=== PATIENT | male | born 1960 | race Caucasian/White ===

== ENCOUNTER 2022-10-08 16:04 | Emergency (ER) | payer OTHER, SELFPAY ==
[2022-10-08 16:17] VITALS: BP 144/127; PULSE 60; RESP 24; TEMP 36.5; O2SAT 99
--- NOTE | 2022-10-08 16:30 | DI.RAD_ITS ---
Exam(s) XR ELBOW RT LIMITED EXAM: XR ELBOW RT LIMITED CLINICAL HISTORY: trauma. TECHNIQUE: 2D digital imaging was performed. COMPARISON: No exams were available for comparison FINDINGS: Two views: There is lateral dislocation of the elbow joint. There is no obvious fracture of the radial head and neck nor of the olecranon. There is an osteophytic fragment which is possibly off the lateral epico ndyle. Capitellum and trochlea appear intact. IMPRESSION: Lateral dislocation of the elbow. Probable fracture of the lateral epicondyle. DATA REPOSITORY: RADIATION DOSE DELIVERED:
[2022-10-08] MEDS: ACETAMINOPHEN 1,000 MG/100 ML BTL 400 MG IVPB (16:51)
[2022-10-08] MEDS: HYDROmorphone 2 MG/ML SYR 0.5 MG IVP ×2 (16:52→18:46)
[2022-10-08] MEDS: fentaNYL 100 MCG/2 ML VIAL 75 MCG IVP (17:31)
--- NOTE | 2022-10-08 18:06 | DI.VRAD_ITS ---
PROCEDURE INFORMATION: Exam: XR Right Elbow Exam date and time: 10/08/2022 5:47 PM Age: 62 years old Clinical indication: Other: Trauma TECHNIQUE: Imaging protocol: Radiologic exam of the right elbow. Views: 1 or 2 views. COMPARISON: No relevant prior studies available. FINDINGS: Bones/joints: Lateral elbow dislocation. Tiny ossicle may be off the lateral epicondyle. No definite fracture of the olecranon or radial head. Soft tissues: Moderate soft tissue edema. IMPRESSION: Lateral dislocation of the elbow with probable fracture of the lateral epicondyle. Dictated and Authenticated by: Favian Robles MD. Ordering:DIANE Durham MD
[2022-10-08] MEDS: HYDROmorphone 2 MG/ML SYR 1 MG IVP (19:38)
--- NOTE | 2022-10-08 19:41 | W.EDPROG ---
Date of service: 10/08/22 Time of Service: 19:41 Medical Decision Making I met with this patient before he was transferred to [facility] [place]. In brief this is a [id number] previously healthy 62-year-old male who had fallen from a ladder and caught his right arm in the ladder on the way down. He did not hit his head he did not lose consciousness. His primary survey was intact. He has a reassuring shock index. His right hand is warm and well-perfused. His plain films showed a lateral dislocation of his right elbow with a probable fracture of the lateral epicondyle. Unfortunately orthopedics was not available locally so orthopedics was consulted at [facility] [place] given fracture dislocation. Recommendation from orthopedics at [facility] [place] was that we could consider reduction prior to splinting. A seismic observer was on the way to transport the patient in less than 20 minutes. I advised that I could attempt relocation but that this would risk possible worsening his fracture and delaying in transfer. His pain was being managed with IV medications. Patient agreed that deferring reduction seemed best to him given availability of specialty care at [facility] [place] and adequately managed pain. Given no chest tenderness and no hypoxia no indication for chest imaging as my suspicion was exceedingly low for pneumothorax. No head strike nor LOC so will defer CT head. No indication for CT cervical spine based no reported neck pain. Discharge Plan Disposition Patient Disposition: Transfer-Acute Inpatient Care Specific Acute Inpt Facility: [facility] Discharge Details Clinical Impression: Closed fracture dislocation of elbow Primary Care Provider: [facility] ED Provider: Marva Duran Meds and New Rx's Prescriptions: No Action amoxicillin 500 MG capsule 500 mg PO TID 10 Days 0RF Discharge Data Discharge Date/Time-TO BE ENTERED AT DEPARTURE: 10/08/22 20:23
--- NOTE | 2022-10-08 20:11 | ED.GENADUL_ITS ---
Discharge Plan Disposition Patient Disposition: Transfer-Acute Inpatient Care Specific Acute Inpt Facility: [facility] Discharge Details Clinical Impression: Closed fracture dislocation of elbow Primary Care Provider: [place] ED Provider: Marva Duran Meds and New Rx's Prescriptions: No Action amoxicillin 500 MG capsule 500 mg PO TID 10 Days 0RF Discharge Data Discharge Date/Time-TO BE ENTERED AT DEPARTURE: 10/08/22 20:23 Medical Decision Making This is a 62-year-old with isolated right arm injury neurovascularly intact. X- ray demonstrates dislocated fractured right elbow. His case is discussed with orthopedics at [facility] who recommends ED to ED transfer I spoke with Dr. Joon Mills from the emergency department who accepts patient in transfer he is being transported by ground EMS in stable condition. He has received 1000 mg of IV acetaminophen 0.5 mg IV Dilaudid 75 mics of IV fentanyl. Repeat Dilaudid 1 mg IV push with pain improvement. Discussed reduction with him patient opted to wait to arrive at [facility] so not to avoid delay in his transfer Medical Records Medical records reviewed: Yes I reviewed the patient's medical records. HPI General Mode of arrival: ambulatory . Date/Time Provider Initiated Documentation: 10/08/22 16:24 . Limitations to Documentation: no limitations . Information obtained by: patient . HPI Narrative: This is a 62-year-old male patient with no significant past medical history on no medication mechanical fall on a ladder approximately 5 feet injury to his right arm while it was caught in a rung during the fall. There was no other injury. He did not strike his head. He has been unable to move his right elbow secondary to the pain. He presents for evaluation Related Data Home Medications Medication Instructions Recorded Confirmed amoxicillin 500 mg capsule 500 mg PO TID 10 days 03/09/16 Previous Rx's Medication Instructions Recorded amoxicillin 500 mg capsule 500 mg PO TID 10 days 03/09/16 Allergies Allergy/AdvReac Type Severity Reaction Status Date / Time No Known Allergies Allergy Unverified 10/08/22 16:28 General Stated Complaint: Orthopedic RAVINDER: 3 Review of Systems All systems reviewed & are unremarkable except as noted in HPI and below PFSH All Active Problems (Updated 10/08/22 @ 20:21 by Marva Duran, [employer]) Closed fracture dislocation of elbow (Acute) Social History Smoking/Tobacco Use Status: Never Smoking risk assessment performed?: Yes Alcohol Intake: current Substance use type: does not use Do you feel safe in your relationship?: No Exam Const General: cooperative and in distress moderate Nutritional Appearance: thin Orientation: alert, awake and oriented x3 HENMT Head: normal to inspection, normocephalic and atraumatic Face and sinus: normal facial exam Neck Neck: normal visual inspection, full ROM and nontender Chest Chest: normal inspection of the chest Resp Effort & Inspection: normal respiratory effort Auscultation: clear to auscultation bilaterally Cardio Rate: regular rate Rhythm: regular rhythm GI Inspection: normal to inspection Palpation: soft and nontender Skin General skin exam: no rashes or lesions noted Neuro General: patient alert, patient awake and patient oriented x3 Extrem Right upper extremity: elbow/forearm Details: tenderness, swelling and deformity (Suspected dislocation arm is held in a straight position) Location: other (Patient reported good pulse sensation and color distally); abnormal to inspection and ROM limited Course Vital Signs Vital signs: Vital Signs Temperature 36.5 C 10/08/22 16:17 Pulse 60 10/08/22 16:17 Respiratory Rate 24 10/08/22 16:17 Blood Pressure 144/127 H 10/08/22 16:17 Pulse Oximetry 99 10/08/22 16:17 Temperature 36.5 C 10/08/22 16:17 Temperature Source Temporal Artery Scan 10/08/22 16:17 Pulse 60 10/08/22 16:17 Respiratory Rate 24 10/08/22 16:17 Blood Pressure 144/127 H 10/08/22 16:17 Blood Pressure Position Sitting 10/08/22 16:17 Pulse Oximetry 99 10/08/22 16:17 Oxygen Delivery Method Room Air 10/08/22 16:17 Oxygen Flow Rate 0 10/08/22 16:17 Pain Level 8 10/08/22 18:46
--- NOTE | 2022-10-08 20:17 | NUR.NOTE ---
Nursing Note: Report called to [facility], spoke with Mark Dinero RN. All questions answered. EMS at bedside for transport to [facility]. Report given to JUSTIN Nguyễn-P. Pt out of ER at this time.
[2022-10-08 20:20] VITALS: BP 134/83; PULSE 72; O2SAT 94
== END 2022-10-08 20:23 | disposition short-term general hospital (02) ==
PROVIDERS: Emergency Provider Nurse Practitioner Acute Care
DX: S42.401A Unspecified fracture of lower end of right humerus, initial encounter for closed fracture (principal); W11.XXXA Fall on and from ladder, initial encounter
CPT/HCPCS: 96365; 96375; 96376; 99285; 73070; J0131; J1170; J3010

== ENCOUNTER 2024-11-14 01:59 | Outpatient (CLI) | payer OTHER, SELFPAY ==
--- NOTE | 2024-11-14 | DI.CT_ITS ---
Exam(s) CT ABDOMEN PELVIS WO/W EXAM: CT ABDOMEN PELVIS WO/W CLINICAL HISTORY: Gross hematuria, R31.0;flank pain;tobacco use; [id number]. TECHNIQUE: Imaging Protocol: Axial computed tomography images with coronal and sagittal reformatted images were created and reviewed. Images were performed from the lung bases through the ischial tuberosities before IV contrast and following IV contrast using a 70 second delay, followed by 7 minutes delayed images. CONTRAST MATERIAL: Intravenous: Omnipaque 350 Contrast volume:75 cc Oral: no COMPARISON: No exams were available for comparison FINDINGS: Lung Bases: Normal where visualized. Liver: Normal density. No measurable mass. Gallbladder and biliary tract: No biliary dilation. Pancreas: Normal density, no abnormal calcifications or inflammatory process. Spleen: Normal. Kidneys: Normal size, contour and axis. No radiodense stones or obstructive uropathy. No suspicious masses seen. Adrenal glands: No masses seen. Lymph nodes: 13 x 5 millimeter lymph node to the left of the bladder, adjacent to the anterior acetabulum. This is at the level of the bladder mass. Abdominal Aorta: Abdominal portion non-dilated. Atherosclerotic changes causing luminal narrowing distally. There is also some narrowing of the iliac arteries. Soft tissues: Unremarkable. Bladder: No gross wall thickening. Peripherally calcified mass along the left wall of the bladder measuring 19 x 17 by 23 millimeters.No evidence of calculi. Bowel: Stomach unremarkable. No obstruction or bowel wall thickening. Sigmoid diverticulosis. Peritoneal cavity: No ascites, collection or mesenteric inflammatory response. Bones: Unremarkable for age.. Reproductive organs: Prostate is mildly enlarged. IMPRESSION: 2.3 centimeter mass at the left side of the bladder. Cystoscopy is recommended for further evaluation. No suspicious renal mass. No evidence of urinary tract calculi. No evidence of hydronephrosis. Unexpected findings RADIATION DOSE DELIVERED: 652.14mGy.cm Total DLP DATA REPOSITORY: All CT scans at this facility are submitted to the National Radiology Data Registry (NRDR) Dose Index Registry (DIR) with the [employer] (A[employer]). RADIATION OPTIMIZATION: All CT scans at this facility use at least one of these dose optimization techniques: automated exposure control; mA and/or kV adjustment per patient size (includes targeted exams where dose is matched to clinical indication); or iterative reconstruction.
[2024-11-14 07:36] LABS: BUN 23 mg/dL (7-18); Estimated GFR 99.44 (mL/min/1.73m2)
[2024-11-14] MEDS: Normal Saline - Diluent 50 ML VIAL IJ ×2 (08:56→08:57)
[2024-11-14] MEDS: Omnipaque 350 MG/ML 500 ML BTL-Imaging package IJ (08:58)
== END 2024-11-14 02:19 ==
PROVIDERS: PCP Internal Medicine; Visit Provider Internal Medicine
DX: R31.0 Gross hematuria (principal); R93.41 Abnormal radiologic findings on diagnostic imaging of renal pelvis, ureter, or bladder
CPT/HCPCS: 84520; 74178; 82565

== ENCOUNTER 2025-01-29 14:14 | Emergency (ER) | payer OTHER, SELFPAY ==
[2025-01-29 14:17] VITALS: BP 169/78; PULSE 94; RESP 18; TEMP 36.5; O2SAT 98
[2025-01-29 14:19] VITALS: BP 169/78; PULSE 94; RESP 18; TEMP 36.5; O2SAT 98
--- NOTE | 2025-01-29 14:31 | W.ED.GENAD ---
Discharge Plan Disposition Patient Disposition: Home Condition: Stable Discharge Details Clinical Impression: Postoperative urinary retention Primary Care Provider: Marilin Hewitt ED Provider: Yen Pyle Home Meds and New Rx's Prescriptions: New tamsulosin 0.4 mg capsule 0.4 mg PO DAILY Qty: 30 0RF Discharge Instructions Instructions: How to Care for Your Bowens Catheter Additional Instructions: You were seen in the emergency department today for evaluation of urinary retention after your Bowens catheter was removed this morning. In our department you had a full physical examination performed, and we discussed your case with your urologist from the [place]. We replaced your urinary catheter, and your bladder was drained. Likely, you experience some occlusion due to swelling after the procedure, as well as potentially some clots. We have started you on a medication called tamsulosin or Flomax, which can improve the flow of urine and should make it easier for your urology team to remove the Bowens catheter successfully. You will have a visit scheduled by their team on Tuesday or Tuesday of next week for a formal void trial. The catheter will remain in place until it is removed by their team. Please take the Flomax daily until you are told to stop by your urologist. Flomax can make you feel dizzy if you stand up too quickly so please use caution when transitioning from laying down or sitting to standing, and maintain good hydration. Please follow-up with your primary care provider in the next few days to discuss this visit and any symptoms that change, worsen, or persist. Thank you for allowing us to be part of your care. HPI General Mode of arrival: ambulatory. Date/Time Provider Initiated Documentation: 01/29/25 14:20. Limitations to Documentation: no limitations. Information obtained by: patient and old records reviewed. HPI Narrative: This is a 64-year-old male patient with a history of bladder masses that were resected at the [facility] yesterday, presenting for evaluation of urinary retention. He was sent home with a Bowens catheter, states that he was instructed to remove it this morning, and his did so around 9 AM. Since that time he has been comfortable and resting but has not been able to pass any urine. He has been drinking a lot of water, and states that he is not taking any medication such as Flomax. He states that he is starting to have some discomfort in his lower abdomen but otherwise feels well without fevers or chills, flank pain, penile discharge. Related Data Home Medications ?Medication ?Instructions ?Recorded ?Confirmed tamsulosin 0.4 mg capsule 0.4 mg PO DAILY #30 caps 01/29/25 Previous Rx's ?Medication ?Instructions ?Recorded tamsulosin 0.4 mg capsule 0.4 mg PO DAILY #30 caps 01/29/25 Allergies Allergy/AdvReac Type Severity Reaction Status Date / Time No Known Allergies Allergy Unverified 01/29/25 14:45 General Stated Complaint: Urinary RAVINDER: 4 Exam Narrative Exam Narrative: Gen: Awake and alert, in no apparent distress HEENT: Non-icteric sclera Neck: Supple Lungs: No apparent respiratory distress, normal respiratory effort. CV: Appears well perfused Abdomen: Distention in the suprapubic region that is tender to palpation, no rigidity, rebound, or guarding MSK: Moves 4 extremities without apparent limitation in ROM Skin: Visualized skin without rashes, cyanosis. Neuro: Normal Gait, no obvious focal deficits or facial asymmetry. Speaks in full, clear sentences. Psych: Appropriate for situation. Course Vital Signs Vital signs: Vital Signs Temperature 36.5 C 01/29/25 14:17 Pulse 94 H 01/29/25 14:17 Respiratory Rate 18 01/29/25 14:17 Blood Pressure 169/78 H 01/29/25 14:17 Pulse Oximetry 98 01/29/25 14:17 Temperature 36.5 C 01/29/25 14:19 Pulse 94 H 01/29/25 14:19 Respiratory Rate 18 01/29/25 14:19 Blood Pressure 169/78 H 01/29/25 14:19 Pulse Oximetry 98 01/29/25 14:19 Pain Level 3 01/29/25 14:19 Medical Decision Making This is a 64-year-old male patient presenting for evaluation of urinary retention. My differential includes but is not limited to postoperative retention, hematuria/clot and other mechanical obstruction. I have a low concern for bladder rupture due to the lack of significant abdominal tenderness and the focal distention in the area of the bladder. The patient or peritonitic abdominal signs, and the localized distention over the area of the bladder. The patient has no fevers, chills, or other systemic symptoms to increase my concern for UTI/pyelonephritis. I will reach out to the [facility] urology team as I cannot access any records regarding his surgery to ensure that it is safe for me to place a catheter to resolve his urinary retention. We will obtain a bladder scan. - Bladder scan reading 200, though the patient's clinical examination is suggestive of more than that. I was able to talk to Dr. Villalba with the [facility] urology team, who recommends that we replace the Bowens catheter, using a slightly larger bore due to the presence of hematuria during his procedure. He recommends Flomax, which I will provide the patient his first dose and a prescription here. They will have the catheter stay in place until he can have a formal void trial in the [facility] urology clinic on Tuesday. The patient's Bowens catheter was placed and drained of approximately 300 cc of yellow urine. Urinalysis with pyuria and hematuria, most likely postoperative given the lack of urinary infection symptoms, will be sent for culture regardless but I do not see any indication to empirically antibiosis patient. At this time, the patient has had a full medical evaluation and is safe for discharge to home. They are hemodynamically stable, ambulatory, and tolerating PO. They are understanding of the follow-up plan and return precautions. They left our facility without incident. Yen Pyle MD [facility] All Active Problems (Updated 01/29/25 @ 16:01 by Yen Pyle MD) Postoperative urinary retention (Acute) Social History Smoking/Tobacco Use Status: Current every day Tobacco Type: cigarettes Smoking risk assessment performed?: Yes Alcohol Intake: former Drug use: Occasionally Substance use type: marijuana Housing: house Do you feel safe at home: Yes Do you feel safe in your relationship?: Yes
[2025-01-29] MEDS: Tamsulosin 0.4 MG CAPCR PO (15:54)
[2025-01-29] MEDS: Lidocaine 2% Jelly 11 ML SYR UR (15:54)
[2025-01-29 16:09] LABS: Glucose 100 mg/dL (Negative)
[2025-01-29 16:21] LABS: C & S Indicated? Yes; RBC >50 HPF (0-2); WBC >50 HPF (0-5)
[2025-01-29 16:30] VITALS: BP 140/71; PULSE 86; RESP 16; O2SAT 99
== END 2025-01-29 16:34 | disposition home or self-care (01) ==
PROVIDERS: Emergency Provider Emergency Medicine; PCP Internal Medicine
DX: N99.89 Other postprocedural complications and disorders of genitourinary system; R33.8 Other retention of urine
CPT/HCPCS: 99283 ×2; 51702; 51798; 81003; 81015; 87086

== ENCOUNTER 2025-01-30 05:19 | Emergency (ER) | payer OTHER, SELFPAY ==
[2025-01-30 05:23] VITALS: BP 163/96; PULSE 104; RESP 16; TEMP 35.5; O2SAT 98
[2025-01-30 05:37] VITALS: BP 163/96; PULSE 104; RESP 16; TEMP 35.5; O2SAT 98
--- NOTE | 2025-01-30 06:41 | W.ED.GENAD ---
Discharge Plan Disposition Patient Disposition: Home Condition: Good Discharge Details Clinical Impression: Bladder spasms Primary Care Provider: Marilin Hewitt ED Provider: Juan Carlos Love [place] Meds and New Rx's Prescriptions: No Action tamsulosin 0.4 mg capsule 0.4 mg PO DAILY Qty: 30 0RF Patient Comments: has not picked up from pharmacy yet Discharge Instructions Additional Instructions: You were seen for concern regarding blocked Bowens. Bladder scan showed only a tablespoonful of urine in the bladder. We were able to irrigate and drain the catheter without difficulty. Suspect the discomfort you are feeling was related to bladder spasm due to having a Bowens in place. Continue to push fluids and stay hydrated. [facility] Return to ED for any further concerns, fever. Discharge Data Discharge Date/Time-TO BE ENTERED AT DEPARTURE: 01/30/25 06:55 HPI General Mode of arrival: ambulatory. Date/Time Provider Initiated Documentation: 01/30/25 05:20. Limitations to Documentation: no limitations. Information obtained by: patient and RN notes reviewed. HPI Narrative: Patient presenting to ED with concern that his Bowens catheter is no longer draining. Patient had Bowens catheter placed here yesterday afternoon due to retention status post removal of catheter in the morning per postoperative instructions. He has been doing fine and emptied the bag at 10:30 PM and 4:30 AM. Now has very little urine in the bag and has a sense of urgency and discomfort in the lower abdomen. Has not had gross hematuria. Denies fever or flank pain. Related Data Home Medications ?Medication ?Instructions ?Recorded ?Confirmed tamsulosin 0.4 mg capsule 0.4 mg PO DAILY #30 caps 01/29/25 01/30/25 Held on 01/30/25. Instructions: Pt Stopped/Never Started Previous Rx's ?Medication ?Instructions ?Recorded tamsulosin 0.4 mg capsule 0.4 mg PO DAILY #30 caps 01/29/25 Held on 01/30/25. Instructions: Pt Stopped/Never Started Allergies Allergy/AdvReac Type Severity Reaction Status Date / Time No Known Allergies Allergy Unverified 01/30/25 05:36 General Stated Complaint: Urinary RAVINDER: 3 Exam Narrative Exam Narrative: Const: WDWN male in NAD. VS per triage. HEENT: NC/AT. Normal facial exam. Neck: Supple. Trachea midline. Lungs: Normal respiratory effort. Neuro: A+O x 3. Normal speech, mentation. Cranial nerves II - XII grossly intact. No gross motor or sensory deficit. Course Vital Signs Vital signs: Vital Signs Temperature 96 F L 01/30/25 05:23 Pulse 104 H 01/30/25 05:23 Respiratory Rate 16 01/30/25 05:23 Blood Pressure 163/96 H 01/30/25 05:23 Pulse Oximetry 98 01/30/25 05:23 Temperature 96 F L 01/30/25 05:37 Temperature Source Tympanic 01/30/25 05:37 Pulse 104 H 01/30/25 05:37 Respiratory Rate 16 01/30/25 05:37 Blood Pressure 163/96 H 01/30/25 05:37 Blood Pressure Position Supine 01/30/25 05:37 Pulse Oximetry 98 01/30/25 05:37 Oxygen Delivery Method Room Air 01/30/25 05:37 Oxygen Flow Rate 0 01/30/25 05:37 Pain Level 7 01/30/25 05:37 Medical Decision Making Bowens catheter does seem to be working. Bladder scan shows 15 mL of urine. We were able to flush and remove fluid through the catheter without problem. Suspect discomfort and urgency related to the Bowens catheter itself and some bladder spasm. Patient reassured. Encouraged to continue hydration. Follow-up with urology at [place] next week as planned. Return precautions provided. PFSH All Active Problems (Updated 01/30/25 @ 06:43 by Juan Carlos Love MD) Bladder spasms (Acute) Postoperative urinary retention (Acute) Social History Smoking/Tobacco Use Status: Current every day Tobacco Type: cigarettes Years smoked: 40 Smoking risk assessment performed?: Yes Alcohol Intake: former Drug use: Occasionally Substance use type: marijuana Housing: house Do you feel safe at home: Yes Do you feel safe in your relationship?: Yes
[2025-01-30 06:52] VITALS: RESP 16
== END 2025-01-30 06:55 | disposition home or self-care (01) ==
PROVIDERS: Emergency Provider Emergency Medicine; PCP Internal Medicine
DX: T83.098A Other mechanical complication of other urinary catheter, initial encounter (principal); N32.89 Other specified disorders of bladder; F17.210 Nicotine dependence, cigarettes, uncomplicated
CPT/HCPCS: 99283